=== PATIENT | female | born 2000 | race American Indian/Alaskan Native ===

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

== ENCOUNTER 2018-03-29 09:06 | Emergency (ER) | payer MEDICAID, OTHER ==
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
[2018-03-29 08:50] LABS: CHLORIDE,CL 104 mmol/L (101-111); SODIUM,NA 141 mmol/L (135-145)
[~2018-03-29 09:06] MED LIST: Lactated Ringers 1,000 ML IV ONE; Sodium Chloride 0.9% 10 ML Syringe FLUSH PRN
[2018-03-29] MEDS ORDERED: Iopamidol 612 MG/ML 100 ML Bottle IVPUSH ONE (09:13)
[2018-03-29] MEDS ORDERED: HYDROmorphone 0.5 MG/0.5 ML Syringe IVPUSH ONE (10:15)
== END 2018-03-29 10:45 ==
LOC: DL.ED 09:06
DX: S32.039A Unspecified fracture of third lumbar vertebra, initial encounter for closed fracture (principal); S22.41XA Multiple fractures of ribs, right side, initial encounter for closed fracture; E66.9 Obesity, unspecified; S01.81XA Laceration without foreign body of other part of head, initial encounter; S41.102A Unspecified open wound of left upper arm, initial encounter; V89.2XXA Person injured in unspecified motor-vehicle accident, traffic, initial encounter
CPT/HCPCS: 36415; 70450; 71260; 72125; 72128; 72131; 74177; 80053; 80305; 81001; 81025; 85025; 85610; 99291; 99292; G0480; J1170; J7120; Q9967

== ENCOUNTER 2023-03-15 18:34 | Emergency (ER) | payer MEDICAID, OTHER ==
[2023-03-15 20:16] VITALS: BP 154/80; PULSE 89
== END 2023-03-15 20:34 | disposition home or self-care (01) ==
LOC: DL.ED 18:34
DX: J06.9 Acute upper respiratory infection, unspecified (principal)
CPT/HCPCS: 99282; 99283